=== PATIENT | male | born 1980 | race Hispanic/Latino ===

== ENCOUNTER 2021-10-08 09:10 | Emergency (ER) | payer SELFPAY ==
[~2021-10-08] VITALS: Ht 180.3 cm; Wt 106.6 kg
[2021-10-08] MEDS ORDERED: AMLODIPINE BESYL5 MG PO (09:52)
== END 2021-10-08 10:00 | disposition home or self-care (01) ==
LOC: ER 09:47
DX: I10 Essential (primary) hypertension (principal)
CPT/HCPCS: 99282

== ENCOUNTER 2023-12-28 11:14 | Emergency (ER) | payer OTHER ==
[~2023-12-28] VITALS: Ht 180.3 cm; Wt 101.6 kg
[~2023-12-28 11:14] MED LIST: AMLODIPINE BESYL5 MG PO; BENZONATATE100 MG PO; ONDANSETRON ODT4 MG PO
[2023-12-28 11:16] VITALS: TEMP 98.1
[2023-12-28 11:35] LABS: BASOPHILS % 0.4 % (0.0-1.0); EOSINOPHILS # (AUTO) 0.2 (0.0-0.4); EOSINOPHILS % 2.1 % (0.0-6.0); HEMATOCRIT 47.4 % (38.2-49.6); HEMOGLOBIN 16.6 g/dL (14.0-18.0); LYMPHOCYTES # (AUTO) 2.1 (1.0-3.2); MEAN CORPUSCULAR HEMOGLOBIN 30.9 pg (28-32); MEAN CORPUSCULAR VOLUME 88.1 fL (81-99); MONOCYTES # (AUTO) 0.7 (0.2-0.8); MONOCYTES % 7.5 % (4.4-11.3); NEUTROPHILS # (AUTO) 6.7 (2.1-6.9); NEUTROPHILS % 68.4 % (38.7-80.0); PLATELET COUNT 275 x10e3/uL (140-360); RED BLOOD COUNT 5.38 x10e6/uL (4.3-5.7); RED CELL DISTRIBUTION WIDTH 13.1 % (11.7-14.4); WHITE BLOOD COUNT 9.79 x10e3/uL (4.8-10.8)
[2023-12-28] MEDS: SODIUM CHLORIDE 0.9% 1000ML 1,000 ML IV STA (11:44)
[2023-12-28 11:58] LABS: INR 0.87; PARTIAL THROMBOPLASTIN TIME 33.5 seconds (23.8-35.5); PROTHROMBIN TIME 12.5 seconds (11.9-14.5)
[2023-12-28 12:13] LABS: ALBUMIN 4.1 g/dL (3.5-5.0); BILIRUBIN,TOTAL 0.4 mg/dL (0.2-1.2); CALCIUM 9.5 mg/dL (8.4-10.2); CREATININE, SERUM 0.96 mg/dL (0.72-1.25); TOTAL PROTEIN 8.1 g/dL (6.5-8.1); TROPONIN I 0.011 ng/mL (0-0.300)
[2023-12-28 12:17] VITALS: BP_DIAS 94
[2023-12-28] MEDS: CLONIDINE HCL 0.1 MG TAB PO ONE (12:17)
[2023-12-28 12:30] VITALS: PULSE 63; RESP 16
[2023-12-28] MEDS ORDERED: AMLODIPINE BESYL5 MG PO (12:55)
[2023-12-28 18:55] VITALS: BP_SYST 140; PULSE 84; RESP 16; O2SAT 100
== END 2023-12-28 19:04 | disposition home or self-care (01) ==
LOC: ER 11:18
DX: R07.89 Other chest pain (principal); I10 Essential (primary) hypertension; Z91.148 Patient's other noncompliance with medication regimen for other reason; F17.210 Nicotine dependence, cigarettes, uncomplicated
CPT/HCPCS: 36415; 71045; 80053; 83690; 84484; 85025; 85610; 85730; 93005; 99284; J2470; J7030